=== PATIENT | male | born 2000 | race African-American/Black ===

== ENCOUNTER → 2021-10-28 | Outpatient (CLI) | payer OTHER ==
--- NOTE | 2021-10-28 16:30 | Diagnostic Imaging Report ---
INDICATION: Posterior neck mass. EXAMINATION: Cervical spine. FINDINGS: AP and lateral views of the cervical spine show normal vertebral body height and alignment. The disc spaces are normal. There is no fracture or prevertebral soft tissue swelling. There are no appreciable masses posteriorly in the neck. IMPRESSION: Negative cervical spine. Dictated by: Dictated on workstation # [id number]
== END ==
LOC: RAD 15:46
PROVIDERS: ATTEND Nurse Practitioner Family
DX: R22.1 Localized swelling, mass and lump, neck (principal)
CPT/HCPCS: 72040